=== PATIENT | male | born 1980 | race Hispanic/Latino ===

== ENCOUNTER 2019-01-18 11:44 | Day surgery (SDC) | payer BC ==
--- OUTSIDE RECORDS SUMMARY | 2019-01-18 11:49 | XMS REPORT ---
:1980 Author Organization eClinicalWorks Care Team Providers Name Role Phone Mic [facility] Provider Role Unavailable Allergies, Adverse Reactions, Alerts Substance Reaction Event Type N.K.D.A. Info Not Available Non Drug Allergy Problems Problem Type Condition Code Onset Dates Condition Status Assessment Right lower quadrant abdominal pain R10.31 Active Problem Benign essential HTN I10 Active Problem Tobacco use disorder F17.200 Active Problem Allergic rhinitis J30.9 Active Assessment Right inguinal hernia K40.90 Active Problem Lichen simplex chronicus L28.0 Active Problem Abnormal urine R82.90 Active Medications Medication Code System Code Instructions Start Date End Date Status Dosage Lisinopril [facility] [id number] 10 MG Orally Once Active 1 tablet a day Results No Known Results Summary Purpose eClinicalWorks Submission
--- OUTSIDE RECORDS SUMMARY | 2019-01-18 11:49 | XMS REPORT ---
:1980 Author Organization eClinicalWorks Care Team Providers Name Role Phone Mic [facility] Provider Role Unavailable Allergies, Adverse Reactions, Alerts Substance Reaction Event Type N.K.D.A. Info Not Available Non Drug Allergy Problems Problem Type Condition Code Onset Dates Condition Status Assessment Hematuria, unspecified type R31.9 Active Assessment Allergic rhinitis J30.9 Active Assessment Former tobacco use Z87.891 Active Assessment Noncompliance w/medication Z91.14 Active treatment due to intermit use of medication Assessment Dehydration E86.0 Active Problem Benign essential HTN I10 Active Problem Tobacco use disorder F17.200 Active Problem Allergic rhinitis J30.9 Active Assessment Benign essential HTN I10 Active Problem Lichen simplex chronicus L28.0 Active Problem Abnormal urine R82.90 Active Medications Medication Code System Code Instructions Start Date End Date Status Dosage Lisinopril [facility] 56791276757 10 MG Orally Once Active 1 tablet a day Results No Known Results Summary Purpose eClinicalWorks Submission
[2019-01-18] MEDS ORDERED: Ringers Lactate 1,000 ML IV ONE (12:15)
[2019-01-18 12:25] LABS: BUN Blood Urea Nitrogen 16 mg/dL (7-18); Bicarbonate 29 mmol/L (21-32); Glucose Level 82 mg/dL (74-106); Potassium 3.6 mmol/L (3.5-5.1); Sodium Level 140 mmol/L (136-145)
[2019-01-18 12:31] LABS: Absolute Lymphocytes (CBC) 1.9 K/uL (0.7-4.9); Basophils % 0.6 % (0-1.3); Hematocrit 39.1 % (39.6-49.0); Lymphocytes % 22.9 % (15.3-44.8); MPV 9.6 fL (7.6-11.3); RBC Red Blood Cell Count 4.62 M/uL (4.33-5.43)
[2019-01-18] MEDS ORDERED: FENTANYL CITR 250 MCG/5 ML ONE (12:50)
[2019-01-18] MEDS ORDERED: ROCURONIUM 50 MG/5 ML VIAL IV ONE (12:50)
[2019-01-18] MEDS ORDERED: MIDAZOLAM HCL 2 MG/2 ML INJ ONE (12:50)
[2019-01-18] MEDS ORDERED: LIDOCAINE 1% MPF 2 ML AMPULE ONE (12:50)
[2019-01-18] MEDS ORDERED: PROPOFOL 200 MG/20 ML VIAL IV ONE (12:50)
[2019-01-18] MEDS ORDERED: GLYCOPYRROLATE 0.2 MG/ML SYR ONE ×2 (12:50→13:41)
[2019-01-18] MEDS ORDERED: CEFAZOLIN/SWI 1gm 1 GM/10 ML SYR ONE (12:53)
[2019-01-18 13:40] LABS: Blood Morphology Comment NOT SEEN (NOT SEEN); Platelet Estimate ADEQ; Urine White Blood Cell Casts OK
[2019-01-18] MEDS ORDERED: KETOROLAC 30 MG/ML INJ ONE (13:41)
[2019-01-18] MEDS ORDERED: NEOSTIGMINE 1 MG/ML -10 ML VIAL ONE (13:41)
--- NOTE | 2019-01-18 13:42 | P.BOP ---
Preoperative diagnosis: incarcerated tender right inguinal hernia Postoperative diagnosis: same plus right tender femoral hernia Primary procedure: Laparoscopic repair of right inguinal and right femoral hernia with mesh Geochemical Manager: Malika Hay (Loree) Estimated blood loss: <10cc Specimen: hernia content Findings: see dictation Anesthesia: General Complications: None Implants: 3d mesh
[2019-01-18] MEDS ORDERED: ONDANSETRON 4 MG/2 ML VIAL ONE ×2 (14:17→16:39)
[2019-01-18] MEDS: MEPERIDINE HCL 25 MG/0.5 ML ONE ×2 (14:22→14:27)
[2019-01-18] MEDS: MORPHINE 4 MG/ML SYR ONE ×2 (14:25→14:32)
[2019-01-18] MEDS ORDERED: CODEINE 30MG/APAP 300MG TAB ONE (15:12)
[2019-01-18 17:05] VITALS: BP 111/79; TEMP 97.3; O2SAT 100
--- NOTE | 2019-01-19 01:10 | OP ---
Date of Procedure: 01/18/2019 Surgeon: Fernie Bolton MD Diagnoses: Incarcerated right inguinal hernia and right femoral hernia. Procedure: Laparoscopic repair of right inguinal and right femoral hernia with mesh. Disposition: Home. Activity: As tolerated. No heavy lifting. Followup: Follow up in my office in 1 week. Call for appointment at [phone]. Keep area dry for 48 hours, then may shower. Cold compress of the right inguinal region. Medications: Tylenol No. 3 q.4 hours p.r.n. pain and Bactrim DS p.o. b.i.d. MIGUEL/YONI Voice ID: [id number] Report ID: [id number]
--- NOTE | 2019-01-19 01:10 | OP ---
Date of Procedure: 01/18/2019 Surgeon: Fernie Bolton MD Merchandise Flow Associate: Malika Church. Preoperative Diagnosis: Incarcerated right inguinal hernia, tender. Postoperative Diagnoses: Incarcerated right inguinal hernia, tender plus right tender femoral hernia. Procedures: Laparoscopic repair of right inguinal and right femoral incarcerated hernia with mesh. Estimated Blood Loss: Less than 10 mL. Specimen: Hernia contents and the femoral. Anesthesia: General plus local. Findings: Patient has a complaint of right inguinal and right femoral hernia fixed laparo scopically. A small incision have to make over the femoral region to help us reduce the hernia. Indications: This is the case of a 38-year-old patient, who comes yesterday to the primary doctor wi th severe right inguinal pain, comes today to my office with right inguinal pain, sudden, this after doing heavy lifting. Right inguinal hernia diagnosed with incarceration. With benefits, alternative s, and risks including, but not limited repair with mesh which include, but not limited to infection, bleeding, damage to adjacent structures, anesthesia complication, recurrence, VT, and even . Jovon lopez also understands this may not relieve any symptoms. He might need more than one surgical intervent ion. He understood, signed a consent. Description Of Procedure: Patient was brought to the operating room, placed in supine position. Ane sthesia was done without complication. Abdominal area and inguinal area were prepped and draped in a sterile fashion. Marcaine 0.5% was injected for local anesthetic. Incision was made in the infraum bilical region. The anterior rectus sheath was found on the right side opened, muscle retracted late rally to expose the posterior rectus sheath. The extraperitoneal space was gently developed with michael nt dissection. A balloon-tipped trocar was placed over the area directed towards the previous symphy sis. A laparoscope was then introduced and we proceeded to inflate the balloon under direct visualiz ation to create the extraperitoneal space. The balloon was then deflated and removed. Camera was pl aced once again. We inflated the area and then after that, we placed a 5 mm trocar just above the pu bic symphysis and another one midline first one under direct visualization. The preperito brittany space was further developed by exposing the inferior epigastric vessels keeping them anterior. Adiel ligament was dissected laterally to the junction with the iliac veins. Dissection continued i nferiorly to the iliopubic tract, avoiding damage to the femoral branch of the genitofemoral nerve an d lateral femoral cutaneous nerve. The cord structures were carefully skeletonized. We noticed inte resting finding. We have 2 hernias. We have the right inguinal hernia direct and also we have a sma ll femoral hernia. Direct femoral hernia is within tissue through and even though we were trying to reduce, it was difficult to do it, so we made a counter incision exactly over the area where we found a femoral hernia and with the counter incision, we were able to reduce the content, removed __ content and then noticed that was fatty tissue probably small amount of lymph nodes present there and then this area was reduced carefully. The hernia sac was reduced into the peritoneal space. Als o, a direct hernia sac was reduced into the peritoneal space. I placed a 3D mesh over the working sp briana. The mesh was placed along the inferior aspect of the working space completely covering direct, indirect, and femoral spaces. The mesh was secured in place with SorbaFix laterally and superior to the iliopubic tract and inferior and medial to the Adiel ligament. Hemostasis was done. We sprayed local anesthetic over the area. At that moment, we proceeded to deflate the area under direct visua lization holding the mesh in place as we deflate. Making sure the hernia sac still reduced into the peritoneal cavity. At that moment, we proceeded to remove the 5 mm trocar through the anterior rectu s sheath with #1 Vicryl and the skin in subcuticular fashion with 3-0 chromic and then manish on top . Sponge count and instrument counts were correct. Patient tolerated the procedure well. Patient was sent to recovery in stable c ondition. MIGUEL/YONI Voice ID: [id number] Report ID: [id number]
== END 2019-01-18 16:52 | disposition home or self-care (01) ==
LOC: OR 11:44
PROVIDERS: ATTEND Surgery
PROC: 0YU74JZ Supplement Right Femoral Region with Synthetic Substitute, Percutaneous Endoscopic Approach (ICD-10-PCS; 2019-01-18)
PROC: 0YQ54ZZ Repair Right Inguinal Region, Percutaneous Endoscopic Approach (ICD-10-PCS; principal; 2019-01-18 13:30)
DX: K40.30 Unilateral inguinal hernia, with obstruction, without gangrene, not specified as recurrent (principal); K41.90 Unilateral femoral hernia, without obstruction or gangrene, not specified as recurrent; I10 Essential (primary) hypertension
CPT/HCPCS: 85025; 80048; 36415; 88312; 88305; 49650; 49659; J2704; J2710; J2250; J3010; J2175; J2001; J0690; J7120; J2405 ×2; 88302; 88333

== ENCOUNTER 2020-09-30 17:40 | Emergency (ER) | payer BC ==
--- OUTSIDE RECORDS SUMMARY | 2020-09-30 17:43 | XMS REPORT | Continuity of Care Document ---
:1980 Author Organization [facility] t Address [address] [place] [address] Care Team Providers Name Role Phone Unavailable Unavailable Unavailable Problems This patient has no known problems. Allergies, Adverse Reactions, Alerts This patient has no known allergies or adverse reactions. Medications Ordered Filled Start Stop Current Ordering Indication Dosage Frequency Signature Comments Components Source Medication Medication Date Date Medication? Clinician (SIG) Name Name Lisinopril Lisinopril Yes George [address] [facility] ent Clinics Immunizations Ordered Filled Immunization Date Status Comments Sourc e Immunization Name Name TDAP > 7 TDAP > 7 2018-08-[address] [facility] - Years-Adacel Years-Adacel 00:00:00 [facility] Procedures This patient has no known procedures. Encounters Start End Encounter Admission Attending Care Care Encounter Source Date/Time Date/Time Type Type Clinicians Facility Department ID 2020-06-03 2020-06-03 Outpatient [facility] [id number] [facility] 2019-07-22 2019-07-22 [facility] [id number] [facility] 13:00:00 13:00:00 [place] [employer] [facility] Family Medicine l Medicine Outpati ent Clinics 2019-07-04 2019-07-04 [facility] [id number] 08:36:00 08:36:00 [facility] [employer] - Road [facility] l Medicine Outpati ent Clinics 2019-06-27 2019-06-27 [facility] [id number] 13:20:00 13:20:00 [facility] - Road [facility] l Medicine Outpati ent Clinics 2019-06-27 2019-06-27 [facility] [id number] [address] 09:11:00 09:11:00 [place] [employer] [facility] - Drive [facility] Medicine l Medicine Outpati ent Clinics 2019-05-06 2019-05-06 [facility] [id number] 13:45:00 13:45:00 [place] [employer] [place] [facility] - Drive [facility] l Medicine Outpati ent Clinics 2019-02-28 2019-02-28 [facility] [id number] 08:02:00 08:02:00 [place] [facility] [place] [address] - Drive [facility] Medicine l Medicine Outpati ent Clinics 2019-02-26 2019-02-26 [facility] [id number] 08:00:00 08:00:00 [place] [facility] [employer] s - Drive [facility] Medicine l Medicine Outpati ent Clinics 2019-02-18 2019-02-18 [facility] [id number] 16:22:00 16:22:00 [place] [facility] [employer] s - Drive [facility] l Medicine Outpati ent Clinics 2019-01-17 2019-01-17 [facility] [id number] 13:00:00 13:00:00 [place] [facility] - Drive [facility] Medicine l Medicine Outpati ent Clinics 2018-11-26 2018-11-26 [facility] [id number] 08:00:00 08:00:00 [place] [facility] [employer] s - Drive [facility] Medicine l Medicine Outpati ent Clinics 2018-09-26 2018-09-26 [facility] [id number] 10:52:00 10:52:00 [place] [facility] [employer] s - Drive [facility] Medicine l Medicine Outpati ent Clinics 2018-08-28 2018-08-28 [facility] [id number] [address] 09:43:00 09:43:00 [place] [employer] [facility] - Drive [facility] Medicine Outpati ent Clinics 2018-08-23 2018-08-23 [facility] [id number] 10:15:00 10:15:00 [place] [employer] [facility] - Drive [facility] Medicine Outpati ent Clinics 2018-05-23 2018-05-23 [facility] [id number] 11:15:00 11:15:00 [place] [employer] [place] - Drive [facility] Medicine Outpati ent Clinics 2018-05-21 2018-05-21 [facility] [id number] 16:23:00 16:23:00 [place] [employer] [facility] - [employer] [facility] Medicine Outpati ent Clinics 2017-08-08 2017-08-08 [facility] [id number] 08:45:00 08:45:00 [place] - [employer] [facility] Medicine Outpati ent Clinics 2017-05-09 2017-05-09 [facility] [id number] 09:00:00 09:00:00 [place] [employer] - [employer] [facility] Medicine Outpati ent Clinics 2017-04-25 2017-04-25 [facility] [id number] 09:30:00 09:30:00 [place] - [employer] [facility] Medicine Outpati ent Clinics 2017-04-25 2017-04-25 [facility] [id number] 08:41:00 08:41:00 [place] - Drive [facility] Medicine Outpati ent Clinics Results This patient has no known results.
--- NOTE | 2020-09-30 18:37 | RAD REPORT ---
EXAM DESCRIPTION: RAD - Hand Right 3 View - 09/30/2020 6:11 pm CLINICAL HISTORY: laceration Pain and swelling COMPARISON: No comparisons FINDINGS: No fracture or radiopaque foreign body is seen.
[2020-09-30] MEDS ORDERED: BUPIVACAINE 0.5% PF 10 ML VIAL ONE (18:38)
[2020-09-30] MEDS ORDERED: LIDOCAINE 1% MPF 30 ML VIAL ONE (18:38)
--- NOTE | 2020-09-30 18:59 | ER ---
Nurse's Notes [facility] Name: Sage Wilburn Age: 39 yrs Sex: Male : 1980 Arrival Date: 09/30/2020 Time: 17:41 Bed DIS2 Private MD: Diagnosis: Laceration without foreign body of right index finger without damage to nail Presentation: 09/30 17:43 Chief complaint: Patient states: right hand laceration with glass while washing dishes sv today. Coronavirus screen: Client denies travel out of the [place] in the last 14 days. At this time, the client does not indicate any symptoms associated with coronavirus-19. Ebola Screen: No symptoms or risks identified at this time. Risk Assessment: Do you want to hurt yourself or someone else? Patient reports no desire to harm self or others. Onset of symptoms was September 30, 2020. 17:43 Method Of Arrival: Ambulatory sv 17:43 Acuity: DARNELL 3 sv 17:44 Complicating Factors: There are no complicating factors for this patient. sv 19:48 Initial Sepsis Screen: Does the patient meet any 2 criteria? No. Patient's initial kg sepsis screen is negative. Does the patient have a suspected source of infection? No. Patient's initial sepsis screen is negative. Triage Assessment: 17:44 General: Appears in no apparent distress. uncomfortable, Behavior is calm, cooperative, sv appropriate for age. Pain: Complains of pain in right hand. Neuro: Level of Consciousness is awake, alert, obeys commands, Oriented to person, place, time, situation, Gait is steady. Respiratory: Respiratory effort is even, unlabored. Injury Description: Laceration sustained to Right first web space. Historical: - Allergies: 17:43 No Known Allergies; sv - PMHx: 17:43 Hypertensive disorder; sv - Immunization history:: Client reports having NOT received the Covid vaccine. - Social history:: Smoking status: Patient denies any tobacco usage or history of. Screenin:48 Abuse screen: Denies threats or abuse. Denies injuries from another. Nutritional kg screening: No deficits noted. Tuberculosis screening: No symptoms or risk factors identified. Fall Risk None identified. Assessment: 19:48 Injury Description: Laceration is. kg Vital Signs: 17:44 BP 181 / 108; Pulse 88; Resp 16; Pulse Ox 100% ; Weight 99.79 kg; Height 5 ft. 11 in. sv (180.34 cm); 19:34 BP 148 / 90; dh4 17:44 Body Mass Index 30.68 (99.79 kg, 180.34 cm) sv ED Course: 17:41 Patient arrived in ED. as 17:43 Triage completed. sv 17:44 Arm band placed on. sv 17:49 Boni Ruby PA is PHCP. cp 17:49 Boni Blackwood MD is Attending Physician. cp 18:11 XRAY Hand RIGHT 3 View In Process Unspecified. EDMS 18:24 Jessica Lee, KEYLA is Primary Nurse. kg 19:31 Wound care: to laceration located on right hand was cleaned with Hibiclens, dressed [facility] with 4X4s, Patient tolerated well. 19:48 Patient has correct armband on for positive identification. kg 19:48 No provider procedures requiring assistance completed. Patient did not have IV access kg during this emergency room visit. 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 Exp: kg 04/23/2022. Lot #: [id number]. } Route: IM; Site: left deltoid; 19:05 Follow up: Response: No adverse reaction kg Outcome: 18:59 Discharge ordered by MD. cp 19:48 Discharged to home ambulatory. kg 19:48 Condition: improved 19:48 Discharge instructions given to patient, Instructed on discharge instructions, follow up and referral plans. Demonstrated understanding of instructions, follow-up care. 19:49 Patient left the ED. kg Signatures: Dispatcher [employer] [facility] Cassandra Burkett RN RN Merle Bolton as Boni Ruby PA PA cp Huhn, Donald [facility] Jessica Lee RN RN kg Corrections: (The following items were deleted from the chart) 17:44 17:43 PMHx: None; sv sv 17:46 17:43 Acuity: DARNELL 4 sv sv 17:46 17:44 Pulse 88bpm; Resp 16bpm; Pulse Ox 100%; 99.79 kg; Height 5 ft. 11 in.; BMI: 30.6; sv sv
--- NOTE | 2020-09-30 18:59 | EDPHYS ---
Physician Documentation [facility] Name: Sage Wilburn Age: 39 yrs Sex: Male : 1980 Arrival Date: 09/30/2020 Time: 17:41 Bed DIS2 Private MD: ED Physician Boni Blackwood HPI: 09/30 18:00 This 39 yrs old Male presents to ER via Ambulatory with complaints of cp Laceration To Hand. 18:00 The patient has a laceration occurred at home, and broken glass The injury was cp accidental. The laceration(s) is(are) located on the dorsal side proximal right index finger. Onset: The symptoms/episode began/occurred just prior to arrival. Associated signs and symptoms: Pertinent negatives: heavy bleeding, numbness distal to injury. Historical: - Allergies: 17:43 No Known Allergies; sv - PMHx: 17:43 Hypertensive disorder; sv - Immunization history:: Client reports having NOT received the Covid vaccine. - Social history:: Smoking status: Patient denies any tobacco usage or history of. ROS: 18:05 Skin: Positive for laceration(s), of the dorsal side right hand proximal to index cp finger. 18:05 Constitutional: Negative for body aches, chills, fever. cp 18:05 MS/extremity: Positive for pain, of the right hand, Negative for paresthesias. 18:05 All other systems are negative. Exam: 18:10 Constitutional: The patient appears in no acute distress, alert, awake, non-toxic, well cp developed, well nourished. 18:10 Musculoskeletal/extremity: Tendon exam: specific tendon testing normal through active cp and passive range of motion 18:10 Skin: injury, laceration(s), the wound is approximately 4 cm(s), of the dorsal side right hand proximal to index finger, that can be described as clean, no foreign body, linear, with mild bleeding. 18:10 Neuro: Sensation: 2 point discrimination is normal, noted to right index finger. Vital Signs: 17:44 BP 181 / 108; Pulse 88; Resp 16; Pulse Ox 100% ; Weight 99.79 kg; Height 5 ft. 11 in. sv (180.34 cm); 19:34 BP 148 / 90; dh4 17:44 Body Mass Index 30.68 (99.79 kg, 180.34 cm) sv Laceration: 18:57 Wound Repair of 4cm ( 1.6in ) subcutaneous laceration to dorsal side proximal right cp index finger. Linear shaped.. Distal neuro/vascular/tendon intact. Anesthesia: Wound infiltrated with 8 mls of Lido/Marcaine. Wound prep: Moderate cleansing by me, Wound irrigation by me. Skin closed with 6 4-0 Prolene using simple sutures and sterile technique. Dressed with Bacitracin, 4x4's. Patient tolerated well. MDM: 17:53 Patient medically screened. cp 18:00 Differential diagnosis: superficial laceration, tendon injury, vascular injury. cp 18:59 Data reviewed: vital signs, nurses notes, radiologic studies, plain films. cp 18:59 Test interpretation: by ED physician or midlevel provider: plain radiologic studies. cp Counseling: I had a detailed discussion with the patient and/or guardian regarding: the historical points, exam findings, and any diagnostic results supporting the discharge/admit diagnosis, radiology results, to return to the emergency department if symptoms worsen or persist or if there are any questions or concerns that arise at home. 18:59 Response to treatment: the patient's symptoms have markedly improved after treatment, cp and as a result, I will discharge patient. 09/30 17:53 Order name: XRAY Hand RIGHT 3 View; Complete Time: 18:55 cp 09/30 18:55 Interpretation: Report reviewed. cp 09/30 17:53 Order name: Dressing - Wound; Complete Time: 19:35 cp 09/30 17:53 Order name: Gloves, Sterile; Complete Time: 19:35 cp 09/30 17:53 Order name: Setup Suture Tray; Complete Time: 19:35 cp 09/30 18:58 Order name: Splint - Finger; Complete Time: 19:32 cp 09/30 18:58 Order name: Wound dressing; Complete Time: 19:32 cp 09/30 18:58 Order name: Blood Pressure Recheck; Complete Time: 19:34 cp Administered Medications: 18:25 Drug: Lidocaine-Epinephrine -1%: (1:100,000) 10 ml Volume: 20 ml; Route: Infiltration; kg 18:25 Drug: Marcaine (bupivacaine) (0.5 %) 10 ml Volume: 10 ml; Route: Infiltration; kg 19:04 Drug: Tetanus-Diphtheria Toxoid Adult 0.5 ml {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 Exp: kg 04/23/2022. Lot #: [id number]. } Route: IM; Site: left deltoid; 19:05 Follow up: Response: No adverse reaction kg Disposition: 19:15 Chart complete. cp 10/01 14:47 Co-signature as Attending Physician, Boni Blackwood MD I agree with the assessment and [place] healthcare plan of care. Disposition Summary: 09/30/20 18:59 Discharge Ordered Location: Home cp Problem: new cp Symptoms: have improved cp Condition: Stable cp Diagnosis - Laceration without foreign body of right index finger without damage to nail cp Followup: cp - With: Private Physician - When: 10 - 14 days - Reason: Staple/Suture removal Forms: - Medication Reconciliation Form cp - Thank You Letter cp - Antibiotic Education cp - Prescription Opioid Use cp Signatures: Dispatcher [employer] Cassandra Adame, Boni Molina RN, MD MD cha Page, Corey, PA PA cp Jessica Lee RN RN kg Corrections: (The following items were deleted from the chart) 09/30 17:44 17:43 PMHx: None; sommer novoa
[2020-09-30] MEDS ORDERED: TETANUS & DIPHTHERIA TOX,ADULT 0.5 ML VIAL ONE (19:04)
[2020-09-30 19:53] VITALS: O2SAT 100
[2020-09-30 19:54] VITALS: BP 148/90
== END 2020-09-30 19:49 | disposition home or self-care (01) ==
LOC: ER 17:40
PROC: 0JQJ0ZZ Repair Right Hand Subcutaneous Tissue and Fascia, Open Approach (ICD-10-PCS; principal; 2020-09-30)
DX: S61.210A Laceration without foreign body of right index finger without damage to nail, initial encounter (principal); W25.XXXA Contact with sharp glass, initial encounter; Y92.009 Unspecified place in unspecified non-institutional (private) residence as the place of occurrence of the external cause; Z23 Encounter for immunization; I10 Essential (primary) hypertension
CPT/HCPCS: 90471; 90714; 99283

== ENCOUNTER 2020-11-12 18:35 | Emergency (ER) | payer BC ==
[2020-11-12] MEDS ORDERED: METHYLPREDNISOLONE 125 MG INJ ONE (19:52)
[2020-11-12] MEDS ORDERED: DIPHENHYDRAMINE 50 MG/ML VIAL ONE (19:52)
--- NOTE | 2020-11-12 20:12 | ER ---
Nurse's Notes [facility] Name: Sage Wilburn Age: 39 yrs Sex: Male : 1980 Arrival Date: 11/12/2020 Time: 18:38 Bed 4 Private MD: George Haile Diagnosis: Urticaria Presentation: 11/12 18:42 Chief complaint: Patient states: Got the Flu shot for the first time at 1430 Monday, jl7 started itching that night then noticed rash all over yesterday when I woke up, Benadryl hasn't helped, rash all over body. Tested positive for COVID October 15 and had symptoms for 3 weeks, resolved now with mild intermittent shortness of breath. Coronavirus screen: At this time, the client does not indicate any symptoms associated with coronavirus-19. Ebola Screen: No symptoms or risks identified at this time. Onset: The symptoms/episode began/occurred gradually. Anaphylaxis evaluation, no signs or symptoms of anaphylaxis were noted. Initial Sepsis Screen: Does the patient meet any 2 criteria? No. Patient's initial sepsis screen is negative. Does the patient have a suspected source of infection? No. Patient's initial sepsis screen is negative. Risk Assessment: Do you want to hurt yourself or someone else? Patient reports no desire to harm self or others. Onset of symptoms was November 10, 2020. Care prior to arrival: None. 18:42 Method Of Arrival: Ambulatory [facility] 18:42 Acuity: DARNELL 4 jl7 Triage Assessment: 18:45 General: Appears in no apparent distress. uncomfortable, Behavior is calm, cooperative, jl7 appropriate for age. Pain: Denies pain. Derm: Rash noted that is urticaria. Historical: - Allergies: 18:45 No Known Allergies; jl7 - Home Meds: 18:45 Lisinopril Oral [Active]; jl7 - PMHx: 18:45 Hypertensive disorder; jl7 - PSHx: 18:45 hernia repair; jl7 - Immunization history:: Adult Immunizations up to date, Client reports having NOT received the Covid vaccine. - Social history:: Smoking status: Patient denies any tobacco usage or history of. Screenin:55 Abuse screen: Denies threats or abuse. Denies injuries from another. Nutritional ld1 screening: No deficits noted. Tuberculosis screening: No symptoms or risk factors identified. Fall Risk None identified. Assessment: 18:55 General: Appears in no apparent distress. comfortable, Behavior is calm, cooperative, ld1 appropriate for age. Pain: Denies pain. Neuro: Level of Consciousness is awake, alert, obeys commands, Oriented to person, place, time, situation. Cardiovascular: Denies chest pain, Capillary refill < 3 seconds Patient's skin is warm and dry. Respiratory: Airway is patent Respiratory effort is even, unlabored, Respiratory pattern is regular, symmetrical, Breath sounds are clear bilaterally. GI: Abdomen is round non-distended, Patient currently denies diarrhea, nausea, vomiting. : No signs and/or symptoms were reported regarding the genitourinary system. EENT: No signs and/or symptoms were reported regarding the EENT system. Derm: Rash noted that is itchy, on face, chest, abdomen, right arm, left arm, right leg and left leg Reports itching, Pt reports receiving flu shot for the first time on MondayNovember 10. After receiving flu shot pt began to feel itchy all over. Denies difficulty breathing. Musculoskeletal: No signs and/or symptoms reported regarding the musculoskeletal system. Vital Signs: 18:42 BP 137 / 86; Pulse 86; Resp 17; Temp 97.7; Pulse Ox 100% on R/A; Weight 94.8 kg (R); jl7 Height 5 ft. 10 in. (177.80 cm) (R); Pain 0/10; 18:55 BP 133 / 86; Pulse 86; Resp 18; Pulse Ox 100% on R/A; Pain 0/10; ld1 20:15 BP 127 / 84; Pulse 81; Resp 17; Temp 98.3; Pulse Ox 98% on R/A; mr2 18:42 Body Mass Index 29.99 (94.80 kg, 177.80 cm) jl7 ED Course: 18:38 Patient arrived in ED. am2 18:39 George Haile DO is Private Physician. am2 18:45 Triage completed. jl7 18:45 Arm band placed on right wrist. jl7 18:55 Patient has correct armband on for positive identification. Bed in low position. Call ld1 light in reach. Side rails up X2. Pulse ox on. NIBP on. Door closed. Noise minimized. 18:55 No provider procedures requiring assistance completed. ld1 19:10 Serg Choi MD is Attending Physician. pkl 19:25 Sebastián Child, RN is Primary Nurse. mr2 20:11 George Haile DO is Referral Physician. pkl 20:14 Patient did not have IV access during this emergency room visit. mr2 Administered Medications: 19:28 Drug: SOLU-Medrol (methylPREDNISolone sodium succinate) 125 mg Route: IM; Site: left mr2 deltoid; 19:28 Drug: Benadryl (diphenhydrAMINE) 50 mg Route: IM; Site: left deltoid; mr2 Outcome: 20:11 Discharge ordered by MD. pkl 20:14 Discharged to home ambulatory, with significant other. mr2 20:14 Condition: improved 20:14 Discharge instructions given to patient. 20:32 Patient left the ED. mr2 Signatures: Serg Choi MD MD pkBreonna Torres RN RN jl7 Suzan Chávez am2 Yanni Wilde RN RN ld1 Sebastián Child, KEYLA RN mr2 Corrections: (The following items were deleted from the chart) 18:48 18:42 Chief complaint: Patient states: Got the Flu shot for the first time at 1430 jl7 Sarah, started itching that night then noticed rash all over yesterday when I woke up, Benadryl hasn't helped, rash all over body jl7
--- NOTE | 2020-11-12 20:12 | EDPHYS ---
Physician Documentation [facility] Name: Sage Wilburn Age: 39 yrs Sex: Male : 1980 Arrival Date: 11/12/2020 Time: 18:38 Bed 4 Private MD: [facility] ED Physician Serg Choi HPI: 11/12 19:28 This 39 yrs old Male presents to ER via Ambulatory with complaints of Allergic pkl Reaction. 19:28 The patient presents with itching, rash, of the diffuse. Onset: The symptoms/episode pkl began/occurred 2 day(s) ago. Patient said he had Flu vaccination for the first time 2 days ago. Developed diffuse rash and itching a few hours later. Historical: - Allergies: 18:45 No Known Allergies; jl7 - Home Meds: 18:45 Lisinopril Oral [Active]; jl7 - PMHx: 18:45 Hypertensive disorder; jl7 - PSHx: 18:45 hernia repair; jl7 - Immunization history:: Adult Immunizations up to date, Client reports having NOT received the Covid vaccine. - Social history:: Smoking status: Patient denies any tobacco usage or history of. ROS: 19:32 Eyes: Negative for injury, pain, redness, and discharge, ENT: Negative for injury, pkl pain, and discharge, Neck: Negative for injury, pain, and swelling, Cardiovascular: Negative for chest pain, palpitations, and edema, Respiratory: Negative for shortness of breath, cough, wheezing, and pleuritic chest pain, Abdomen/GI: Negative for abdominal pain, nausea, vomiting, diarrhea, and constipation, Back: Negative for injury and pain, : Negative for injury, bleeding, discharge, and swelling, MS/Extremity: Negative for injury and deformity. 19:32 Skin: Positive for rash, diffusely, itching. 19:32 Neuro: Negative for altered mental status. Exam: 19:32 Head/Face: Normocephalic, atraumatic. Eyes: Pupils equal round and reactive to light, pkl extra-ocular motions intact. Lids and lashes normal. Conjunctiva and sclera are non-icteric and not injected. Cornea within normal limits. Periorbital areas with no swelling, redness, or edema. ENT: Nares patent. No nasal discharge, no septal abnormalities noted. Tympanic membranes are normal and external auditory canals are clear. Oropharynx with no redness, swelling, or masses, exudates, or evidence of obstruction, uvula midline. Mucous membranes moist. Neck: Trachea midline, no thyromegaly or masses palpated, and no cervical lymphadenopathy. Supple, full range of motion without nuchal rigidity, or vertebral point tenderness. No Meningismus. Chest/axilla: Normal chest wall appearance and motion. Nontender with no deformity. No lesions are appreciated. Cardiovascular: Regular rate and rhythm with a normal S1 and S2. No gallops, murmurs, or rubs. Normal PMI, no JVD. No pulse deficits. Respiratory: Lungs have equal breath sounds bilaterally, clear to auscultation and percussion. No rales, rhonchi or wheezes noted. No increased work of breathing, no retractions or nasal flaring. Abdomen/GI: Soft, non-tender, with normal bowel sounds. No distension or tympany. No guarding or rebound. No evidence of tenderness throughout. Back: No spinal tenderness. No costovertebral tenderness. Full range of motion. 19:32 Skin: rash can be described as urticarial, and is diffusely located. 19:32 Neuro: Orientation: is normal, Mentation: is normal, Cranial nerves: grossly normal, Motor: is normal, Sensation: is normal, Gait: is steady. Vital Signs: 18:42 BP 137 / 86; Pulse 86; Resp 17; Temp 97.7; Pulse Ox 100% on R/A; Weight 94.8 kg (R); jl7 Height 5 ft. 10 in. (177.80 cm) (R); Pain 0/10; 18:55 BP 133 / 86; Pulse 86; Resp 18; Pulse Ox 100% on R/A; Pain 0/10; ld1 20:15 BP 127 / 84; Pulse 81; Resp 17; Temp 98.3; Pulse Ox 98% on R/A; mr2 18:42 Body Mass Index 29.99 (94.80 kg, 177.80 cm) jl7 MDM: 19:10 Patient medically screened. pkl 20:09 Data reviewed: vital signs, nurses notes. ED course: Patient feeling better. Advised to pkl follow up with PCP in 2 to 3 days. To return if necessary. Patient understood instructions. Administered Medications: 19:28 Drug: SOLU-Medrol (methylPREDNISolone sodium succinate) 125 mg Route: IM; Site: left mr2 deltoid; 19:28 Drug: Benadryl (diphenhydrAMINE) 50 mg Route: IM; Site: left deltoid; mr2 Disposition Summary: 11/12/20 20:11 Discharge Ordered Location: Home pkl Problem: new pkl Symptoms: have improved pkl Condition: Stable pkl Diagnosis - Urticaria pkl Followup: pkl - With: George Haile, DO - When: 2 - 3 days - Reason: Re-evaluation by your physician Discharge Instructions: - Discharge Summary Sheet pkl Forms: - Medication Reconciliation Form pkl - Thank You Letter pkl - Antibiotic Education pkl - Prescription Opioid Use pkl Prescriptions: - Prednisone 20 mg Oral Tablet - take 2 tablets by ORAL route once daily for 5 days; 10 tablet; Refills: 0, pkl Product Selection Permitted Signatures: Serg Choi MD MD pkl Breonna Caballero RN RN jl7 Sebastián Child RN RN mr2
[2020-11-12 20:43] VITALS: BP 127/84; TEMP 98.3; O2SAT 98
== END 2020-11-12 20:32 | disposition home or self-care (01) ==
LOC: ER 18:35
DX: L50.9 Urticaria, unspecified (principal); I10 Essential (primary) hypertension
CPT/HCPCS: 96372; 99283; J1200; J2930